=== PATIENT | female | born 1945 | race Caucasian/White ===

== ENCOUNTER 2024-10-24 10:17 | Outpatient (AMB) | payer MEDICARE, SELFPAY ==
--- NOTE | 2024-10-24 10:21 | MHC.OFFVIS ---
Vital Signs 10/24/24 10:23 Height 5 ft 6 in Weight 212 lb BMI 34.2 BP 150/69 H Blood Pressure Location Lt brachial Position Sitting Respiration 18 Pulse 88 Pulse Source Pulse Oximeter Pulse Oximetry (%) 95 Oxygen Delivery Method Room Air Intake Visit Reasons: Back Pain/Nevro Consult Senior Java Developer Required: No Allergies acetaminophen (From Vicodin) Allergy (Unknown, Verified 10/24/24 10:20) Unknown hydrocodone (From Vicodin) Allergy (Unknown, Verified 10/24/24 10:20) Unknown meperidine (From Demerol) Allergy (Unknown, Verified 10/24/24 10:20) Unknown Seasonal Allergies Allergy (Unknown, Verified 10/24/24 10:20) Unknown HPI Comments Details: The patient is a 79-year-old female presenting with chronic lower back pain. The pain is described as a deep aching sensation located in the lower back, which does not radiate to the legs currently but has done so in the past when associated with sciatica. The pain is exacerbated by walking and standing for extended periods, with relief upon sitting. In the past she reports that when she would lean forward while walking this would alleviate her pain, however this no longer helps. Does endorse ambulating with slight forward flexed position. The patient reports that the pain has been persistent for years, with no significant relief from previous interventions such as acupuncture, massage, career resource specialist, or physical therapy. She has undergone an interlaminar injection without relief and is not willing to repeat the procedure due to the pain experienced during the injection. The patient has not seen a neurosurgeon for her back issues. Previous imaging from 2020 indicated bulging discs at L4 and L5 with contact but not compression of the nerves, alongside findings of osteoarthritis, bone spurs, and degenerative changes including Modic changes. There is no evidence of central canal stenosis, but the patient experiences discomfort and fatigue in the legs, which could be related to the degenerative changes. Denies red flag symptoms including new loss of bowel, bladder or saddle anesthesia. She is not looking for medications, hoping to find something that improves her quality of life and allows her to be more mobile and walk longer distances. - Onset: Chronic, persistent for years - Quality: Deep aching pain - Location: Lower back - Radiation: Previously radiated to left leg with sciatica, currently no radiation - Exacerbating factors: Walking, standing for extended periods - Relieving factors: Sitting down - Interference: Limits walking distance and standing duration - Affect: Pain impacts patient's ability to maintain an active lifestyle - Analgesia: Patient prefers non-pharmacological management, previous interlaminar injection was ineffective - Adverse Effects: None reported from current pain management strategies - Activities of Daily Living: Pain limits walking and standing, patient desires to increase activity levels - Aberrant Drug Related Behaviors: None reported [facility] Medical History (Updated 10/24/24 @ 11:20 by Mary Reyes APRN, DISPOSAL PLANT OPERATOR) Hypertension COPD (chronic obstructive pulmonary disease) Sleep apnea Diabetes Review of Systems Const Details: - Musculoskeletal: Reports chronic lower back pain, denies tenderness on palpation - Neurological: Denies numbness, tingling, weakness, or incontinence Physical Exam Vital Signs: Last Vital Signs Pulse 88 10/24/24 10:23 Resp 18 10/24/24 10:23 BP 150/69 H 10/24/24 10:23 Pulse Ox 95 10/24/24 10:23 Oxygen Delivery Method Room Air 10/24/24 10:23 BMI result Body Mass Index 34.2 General: awake, alert, oriented. Answers questions appropriately. Fully engaged in examination. Skin: warm, dry, intact HEENT: Normocephalic. Hearing intact. Cardiac: External chest normal in appearance. Respiratory: No cough, audible wheezing or stridor. Abdomen: without gross distension. MS: No obvious swelling or deformities. Able to stand on bilateral tiptoes and bilateral heels.? Able to transition from sit to stand unassisted. Ambulates with bilaterally normal heel strike and toe off SLR negative bilaterally Full lumbar range of motion. No pain with flexion or extension Nontender over midline lumbar vertebrae and lumbar paraspinal muscles Nontender over bilateral PSIS Valsalva negative Bilateral lower extremity strength 5/5 Facet loading positive bilaterally Neurological: Oriented to person, place, time and situation. Thought process intact. No gait abnormalities appreciated. Psychiatric: Appropriate mood and affect. Good judgment and insight. Results Reviewed Results Reviewed: Assessment & Plan Assessment & Plan (1) Chronic back pain: Code(s): M54.9 - Dorsalgia, unspecified; G89.29 - Other chronic pain Category: Medical (2) Degenerative disc disease, lumbar: Code(s): M51.369 - Other intervertebral disc degeneration, lumbar region without mention of lumbar back pain or lower extremity pain Category: Medical (3) Lumbar spondylosis: Code(s): M47.816 - Spondylosis without myelopathy or radiculopathy, lumbar region Category: Medical (4) Chronic pain syndrome: Code(s): G89.4 - Chronic pain syndrome Category: Medical Plan The plan involves obtaining updated imaging studies, including an MRI and x-rays with bending views, to assess the current status of the patient's lumbar spine and identify any changes since the last imaging in 2020. We reviewed the option of a spinal cord stimulator trial, explaining the procedure, potential benefits, and the requirement for a mental health evaluation. I informed her about the insurance approval process and the possibility of needing to complete additional physical therapy if required by her insurance. We also discussed the logistics of scheduling the MRI and x-rays to minimize inconvenience. The patient was receptive to the plan and expressed understanding of the steps involved. Patient was informed and verbally consented to the use of an ambient scribe for clinic note documentation during this visit. Orders: Orders MR lumbar spine wo con Today G89.29 - Other chronic pain, G89.4 - Chronic pain syndrome, M47.816 - Spondylosis without myelopathy or radiculopathy, lumbar region, M51.369 - Other intervertebral disc degeneration, lumbar region without mention of lumbar back pain or lower extremity pain, M54.9 - Dorsalgia, unspecified XR lumbar spine 6V w bending Today G89.29 - Other chronic pain, G89.4 - Chronic pain syndrome, M47.816 - Spondylosis without myelopathy or radiculopathy, lumbar region, M51.369 - Other intervertebral disc degeneration, lumbar region without mention of lumbar back pain or lower extremity pain, M54.9 - Dorsalgia, unspecified Patient Instructions: - Await contact from the imaging department for scheduling MRI and x-rays. - Review the information provided on the spinal cord stimulator trial. - Be prepared for a potential short course of physical therapy if required by insurance. - Contact the office if there are any questions or concerns about the plan. Coding Level of Care Code New Pt Level 4 (79550) Complex EM visit Add On G2211 Diagnoses Chronic back pain M54.9; G89.29 Degenerative disc disease, lumbar M51.369 Lumbar spondylosis M47.816 Chronic pain syndrome G89.4
[2024-10-24 10:23] VITALS: BP 150/69; PULSE 88; RESP 18; O2SAT 95; BMI 34.2
--- OUTSIDE RECORDS SUMMARY | 2024-10-24 11:23 | XMS_ITS | Clinical Summary ---
Author Organization [facility] Address [address] [place] [address] Care Team Providers Care Roller Stainer Name Role Phone Luba Mills MD Primary Care Provider [phone]- [phone] Allergies Active Allergy Reactions Criticality Noted Date Comments Hydrocodone-Acetaminophen 04/24/2020 Medications Medication Sig Dispensed Refills Start Date End Date Status omeprazole (PriLOSEC) 20 MG capsule Take 20 mg by mouth 2 (two) times a day. 0 03/27/2020 Active lisinopril (PRINIVIL,ZESTRIL) tablet 5 mg Take 5 mg by mouth. 0 03/14/2020 Acti ve atorvastatin (LIPITOR) tablet 10 mg TK 1 T PO D 0 02/21/2020 Active insulin glargine (LANTUS SOLOSTAR) injection 100 units/mL Inject 100 Units as directed every morning AND 110 Units every evening. 0 03/14/2020 Active fluticasone (Flonase) 50 MCG/ACT nasal spray spray or apply 100 mcg inside Nose. 0 05/19/2018 Active Melatonin 10 MG TABS Take by mouth. 0 Active Active Problems No known active problems Family History Medical History Relation Name Comments Cancer Mother Relation Name Status Comments Mother Social History Tobacco Use Types Packs/Day Years Used Date Smoking Tobacco: Former Smokeless Tobacco: Never Alcohol Use Standard Drinks/Week Comments Yes 2 (1 standard drink = 0.6 oz pur e alcohol) Sex and Gender Information Value Date Recorded Sex Assigned at Not on file Gender Identity Not on file Sexual Orientation Not on file Job Start Date Occupation Industry Not on file Not on file Not on file Last Filed Vital Signs Vital Sign Reading Time Taken Comments Blood Pressure - - Pulse 95 04/24/2020 1:32 PM EST Temperature - - Respiratory Rate - - Oxygen Saturation 96% 04/24/2020 1:32 PM EST Inhaled Oxygen Concentration - - Weight 103.9 kg (229 lb) 04/24/2020 1:32 PM EST Height 167.6 cm (5' 6 ) 04/24/2020 1:32 PM EST Body Mass Index 36.96 04/24/2020 1:32 PM EST Plan of Treatment Health Maintenance Due Date Last Done Comments Hepatitis C Screening 1945 COVID-19 Vaccine (#1) 03/16/1946 Depression Screening 1958 BMI Counseling 1964 Preventative Health Evaluation 1964 DTap / Tdap / Td (1 - Tdap) 1965 Shingrix-Zoster Vaccine (1 of 2) 1996 Fall Risk Assessment 09/14/2011 Osteoporosis Screening (DEXA Scan) 09/14/2011 RSV Adult > 60+ Yrs or (1 - 1-dose 75+ series) 2021 Influenza Vaccine (Season Ended) 2024 01/26/2018, 01/28/2017, 01/03/2009, Additional history exists Pneumococcal Vaccine Completed 02/26/2016, 02/17/20 13 Hepatitis B Vaccines Aged Out No long er eligible based on patient's age to complete this topic RSV Ped < 20 months Aged Out No longe r eligible based on patient's age to complete this topic Care Teams Roller Stainer Relationship Specialty Start Date End Date Luba Mills MD [address] [facility] [place] [address] PCP - General Internal Medicine 04/24/20
== END 2024-10-24 10:57 | disposition home or self-care (01) ==
LOC: HO.PMC 10:17
PROVIDERS: PCP Pediatrics; Referring Provider Pediatrics; Visit Provider Registered Nurse Emergency
DX: M54.9 Dorsalgia, unspecified (principal); G89.29 Other chronic pain; M51.369 Other intervertebral disc degeneration, lumbar region without mention of lumbar back pain or lower extremity pain; M47.816 Spondylosis without myelopathy or radiculopathy, lumbar region; G89.4 Chronic pain syndrome
CPT/HCPCS: 99204; G2211

== ENCOUNTER → 2024-10-24 10:17 | Outpatient (BNVA) | payer MEDICARE, SELFPAY | PROVIDERS: PCP Pediatrics; Referring Provider Pediatrics; Visit Provider Registered Nurse Emergency | DX: G89.4 Chronic pain syndrome (principal); M54.9 Dorsalgia, unspecified; M47.816 Spondylosis without myelopathy or radiculopathy, lumbar region; M51.369 Other intervertebral disc degeneration, lumbar region without mention of lumbar back pain or lower extremity pain | CPT/HCPCS: 99202 ==

== ENCOUNTER 2024-11-07 15:48 | Outpatient (REF) | payer MEDICARE, SELFPAY ==
--- NOTE | ~2024-11-07 | XR_ITS ---
EXAMINATION: XR LUMBOSACRAL SPINE CLINICAL INFORMATION: M54.9 - Dorsalgia, unspecified COMPARISON: None available. TECHNIQUE: 7 views of the lumbar spine, inclusive of flexion and extension views, were obtained. FINDINGS: Moderate desiccation is present in the abdominal aorta. There are 5 nonrib-bearing lumbar segments. There is mild convex left curvature of the lumbar spine. With flexion and extension, there is no sign of instability. Oblique views demonstrate no pars interarticularis defect. L1-2: There is moderate disc space narrowing and grade 1 retrolisthesis with endplate osteophytes. L2-3: There is moderate disc space during with endplate osteophytes. L3-4: There is severe disc space narrowing with subtle anterolisthesis and endplate osteophytes. L4-5: There is moderate to severe disc space narrowing with vacuum phenomena and endplate osteophytes. There is facet sclerosis and osteophytes. L5-S1: There is mild disc space narrowing and facet sclerosis. XR/XR lumbar spine 6V w bending IMPRESSION: Multilevel degenerative disc disease is most advanced at L3-4 and L4-5.. Electronically signed by: Сергей Hylton MD 11/07/2024 04:41 PM EDT
--- NOTE | ~2024-11-07 | MR_ITS ---
EXAMINATION: MR LUMBAR SPINE WITHOUT CONTRAST CLINICAL INFORMATION: Other intervertebral disc degeneration, lumbar region. COMPARISON: Correlated to x-ray dated November 07, 2024. TECHNIQUE: MRI of the lumbar spine was obtained using routine sequences without contrast. FINDINGS: Last rib-bearing vertebra labeled T12. No bone marrow STIR signal abnormality. Multilevel marginal osteophyte formation and disc desiccation decreased intervertebral disc height and signal from T10-11 to L5-S1 pronounced at L2-3 and L4-5 levels. Modic type II endplate changes at L3-4 and L4-5 levels. Conus medullaris ends at pedicle of L1 with normal signal. Bone marrow inhomogeneity throughout the axial skeleton. T11-12: No disc herniation. No neuroforamina stenosis. T12-L1: No disc herniation. No neuroforamina stenosis. L1-2: Broad-based disc bulging. Facet joint hypertrophy. Reduced AP diameter of the thecal sac and neuroforamina likely encroaching the neural elements. L2-3: Broad-based disc bulging. Posterior marginal osteophyte formation. Facet joint hypertrophy. Central spinal canal and bilateral neuroforamina stenosis encroaching the neural elements. L3-4: Broad-based disc bulging. Posterior marginal osteophyte formation. Facet joint hypertrophy. Central spinal canal and bilateral neuroforamina stenosis encroaching the neural elements. L4-5: Left-subarticular and foraminal herniated disc.. Posterior marginal osteophyte formation. Central spinal canal and bilateral neuroforamina stenosis compressing the left L5 and L4 roots. L5-S1: Broad-based disc bulging. Facet joint hypertrophy. Circumferential prominence of the epidural fat resulting in central spinal canal and bilateral neuroforamina stenosis encroaching likely compressing the neural elements of the thecal sac and the exiting nerve roots more pronounced on the left side. No prevertebral compartment hematoma, mass or fluid collection. There is fatty atrophy of the lower lumbar muscles. Hyperintense T2 cystic lesions in the kidneys. There is soft tissue fullness in the left adrenal gland. MR/MR lumbar spine wo con IMPRESSION: Multilevel lumbar spondylosis L1-2 to L5-S1 resulting in central spinal canal and bilateral neural stenosis encroaching likely compressing the neural elements pronounced at L3-4, L4-5 and L5-S1 and L2-3 levels. Left subarticular and foraminal broad-based disc herniation L4-5 compressing the exiting nerve roots L4 and L5 Epidural lipomatosis L5-S1. Electronically signed by: Attila Hirsch MD 11/08/2024 07:25 AM EDT
--- OUTSIDE RECORDS SUMMARY | 2024-11-07 16:39 | XMS_ITS | Clinical Summary ---
Author Organization [facility] Address [address] [place] [address] Care Team Providers Care Machinist Linotype Name Role Phone Luba Mills MD Primary Care Provider +1- [phone] Allergies Active Allergy Reactions Criticality Noted Date [...] - 1-dose 75+ series) 2021 Influenza Vaccine (#1) 2024 8, 01/28/2017, 01/03/2009, Additional history exists Pneumococcal Vaccine Completed 02/26/2016, 02/17/20 13 Hepatitis B Vaccines Aged Out No long er eligible based on patient's age to complete this topic RSV Ped < 20 months Aged Out No longe r eligible based on patient's age to complete this topic Care Teams Machinist Linotype Relationship Specialty Start Date End Date Luba Mills MD 1 [facility] [place] [id number] PCP - General Internal Medicine 04/24/20
== END 2024-11-07 15:49 | disposition home or self-care (01) ==
LOC: HO.MRI 15:48
PROVIDERS: PCP Pediatrics; Visit Provider Registered Nurse Emergency
DX: M54.9 Dorsalgia, unspecified (principal); G89.29 Other chronic pain; M51.369 Other intervertebral disc degeneration, lumbar region without mention of lumbar back pain or lower extremity pain; M47.816 Spondylosis without myelopathy or radiculopathy, lumbar region
CPT/HCPCS: 72114; 72148

== ENCOUNTER → 2024-11-07 15:55 | Outpatient (BNV) | payer MEDICARE, SELFPAY | PROVIDERS: PCP Pediatrics; Visit Provider Radiology Diagnostic Radiology | DX: M51.360 Other intervertebral disc degeneration, lumbar region with discogenic back pain only (principal) | CPT/HCPCS: 72114; 72148 ==

== ENCOUNTER 2024-11-17 09:15 | Outpatient (AMB) | payer MEDICARE, SELFPAY ==
[2024-11-17 09:27] VITALS: BP 117/59; PULSE 99; RESP 18; O2SAT 99; BMI 33.9
--- NOTE | 2024-11-17 09:27 | A.OFFVIS_ITS ---
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 The condition has worsened over the years, as evidenced by recent MRI findings showing increased stenosis and disc degeneration. The patient experiences pain primarily in the middle of the back, exacerbated by walking and standing, and relieved by sitting. Recent MRI and x-rays were reviewed, results as per below. The patient has previously undergone a steroid injection for pain management, which was ineffective and caused significant discomfort. She reports no leg weakness or neurological deficits, which would otherwise necessitate a neurosurgical consultation. - Onset: Chronic, worsening over years - Quality: Pain in the middle of the back - Exacerbating factors: Walking and standing - Relieving factors: Sitting - Affect: Pain restricts life activities and enjoyment - Analgesia: Previous injection was ineffective - Adverse Effects: None reported from current pain management - Activities of Daily Living: Pain limits walking and standing - Aberrant Drug Related Behaviors: None reported [facility] Medical History (Updated 11/17/24 @ 10:08 by Mary Reyes, GROUND SUPPORT EQUIPMENT FITTER, CLAMP REMOVER) Hypertension COPD (chronic obstructive pulmonary disease) Sleep apnea Diabetes Review of Systems Const Details: - Neurological: Denies leg weakness or neurological deficits Physical Exam Exam Exam: General: awake, alert, oriented. Answers questions appropriately. Fully engaged in examination. Skin: warm, dry, intact HEENT: Normocephalic. Hearing intact. Cardiac: External chest normal in appearance. Respiratory: No cough, audible wheezing or stridor. Abdomen: without gross distension. MS: No obvious swelling or deformities. Able to transition from sit to stand unassisted. Ambulates with bilaterally normal heel strike and toe off SLR negative bilaterally Valsalva negative Bilateral lower extremity strength 5/5 Neurological: Oriented to person, place, time and situation. Thought process intact. No gait abnormalities appreciated. Psychiatric: Appropriate mood and affect. Good judgment and insight. Vital Signs: Last Vital Signs Pulse 99 11/17/24 09:27 Resp 18 11/17/24 09:27 BP 117/59 L 11/17/24 09:27 Pulse Ox 99 11/17/24 09:27 BMI result Body Mass Index 33.9 Results Reviewed Results Reviewed: 11/07/24 MR/MR lumbar spine wo con FINDINGS: Last rib-bearing vertebra labeled T12. No bone marrow STIR signal abnormality. Multilevel marginal osteophyte formation and disc desiccation decreased intervertebral disc height and signal from T10-11 to L5-S1 pronounced at L2-3 and L4-5 levels. Modic type II endplate changes at L3-4 and L4-5 levels. Conus medullaris ends at pedicle of L1 with normal signal. Bone marrow inhomogeneity throughout the axial skeleton. T11-12: No disc herniation. No neuroforamina stenosis. T12-L1: No disc herniation. No neuroforamina stenosis. L1-2: Broad-based disc bulging. Facet joint hypertrophy. Reduced AP diameter of the thecal sac and neuroforamina likely encroaching the neural elements. L2-3: Broad-based disc bulging. Posterior marginal osteophyte formation. Facet joint hypertrophy. Central spinal canal and bilateral neuroforamina stenosis encroaching the neural elements. L3-4: Broad-based disc bulging. Posterior marginal osteophyte formation. Facet joint hypertrophy. Central spinal canal and bilateral neuroforamina stenosis encroaching the neural elements. L4-5: Left-subarticular and foraminal herniated disc.. Posterior marginal osteophyte formation. Central spinal canal and bilateral neuroforamina stenosis compressing the left L5 and L4 roots. L5-S1: Broad-based disc bulging. Facet joint hypertrophy. Circumferential prominence of the epidural fat resulting in central spinal canal and bilateral neuroforamina stenosis encroaching likely compressing the neural elements of the thecal sac and the exiting nerve roots more pronounced on the left side. No prevertebral compartment hematoma, mass or fluid collection. There is fatty atrophy of the lower lumbar muscles. Hyperintense T2 cystic lesions in the kidneys. There is soft tissue fullness in the left adrenal gland. IMPRESSION: Multilevel lumbar spondylosis L1-2 to L5-S1 resulting in central spinal canal and bilateral neural stenosis encroaching likely compressing the neural elements pronounced at L3-4, L4-5 and L5-S1 and L2-3 levels. Left subarticular and foraminal broad-based disc herniation L4-5 compressing the exiting nerve roots L4 and L5 Epidural lipomatosis L5-S1. 11/07/24 XR/XR lumbar spine 6V w bending FINDINGS: Moderate desiccation is present in the abdominal aorta. There are 5 nonrib-bearing lumbar segments. There is mild convex left curvature of the lumbar spine. With flexion and extension, there is no sign of instability. Oblique views demonstrate no pars interarticularis defect. L1-2: There is moderate disc space narrowing and grade 1 retrolisthesis with endplate osteophytes. L2-3: There is moderate disc space during with endplate osteophytes. L3-4: There is severe disc space narrowing with subtle anterolisthesis and endplate osteophytes. L4-5: There is moderate to severe disc space narrowing with vacuum phenomena and endplate osteophytes. There is facet sclerosis and osteophytes. L5-S1: There is mild disc space narrowing and facet sclerosis. IMPRESSION: Multilevel degenerative disc disease is most advanced at L3-4 and L4-5.. Assessment & Plan Assessment & Plan (1) Chronic back pain: Code(s): M54.9 - Dorsalgia, unspecified; G89.29 - Other chronic pain Category: Medical (2) Degenerative disc disease, lumbar: Code(s): M51.369 - Other intervertebral disc degeneration, lumbar region without mention of lumbar back pain or lower extremity pain Category: Medical (3) Lumbar spondylosis: Code(s): M47.816 - Spondylosis without myelopathy or radiculopathy, lumbar region Category: Medical (4) Chronic pain syndrome: Code(s): G89.4 - Chronic pain syndrome Category: Medical (5) Spinal stenosis: Code(s): M48.00 - Spinal stenosis, site unspecified Category: Medical Plan I discussed with the patient the findings of her MRI, which indicate worsening spinal stenosis and degenerative disc disease. The plan involves considering a spinal cord stimulator trial to manage the patient's chronic back pain. The patient has been informed about the procedure, including the risks of infection, bleeding, and nerve damage. A mental health clearance is required before proceeding with the trial, and the patient was given [employer] point handout with contact information so she can get this completed. If this is not covered by her insurance she should discuss with the insurance company a covered provider that can perform this clearance for her. She was advised that we will submit prior Auth for spinal cord stimulator trial once mental health evaluation is cleared per insurance regulations. The trial will involve a temporary implant for one week, and if successful, a permanent implant may be considered. Patient was informed and verbally consented to the use of an ambient scribe for clinic note documentation during this visit. Patient Instructions: - Contact your insurance company to verify coverage for the mental health evaluation - Obtain mental health clearance for the procedure. - Avoid massages during the trial period. - Follow up after the trial for further evaluation. Coding Level of Care Code Est Pt Level 3 (57792) Complex EM visit Add On G2211 Diagnoses Chronic back pain M54.9; G89.29 Degenerative disc disease, lumbar M51.369 Lumbar spondylosis M47.816 Chronic pain syndrome G89.4 Spinal stenosis M48.00
--- OUTSIDE RECORDS SUMMARY | 2024-11-17 09:31 | XMS_ITS | Clinical Summary ---
Author Organization [facility] Address [address] [place] [phone] Phone Care Team Providers Care Mammalogist Name Role Phone Luba Munoz MD Primary Care Provid er Allergies Active Allergy Reactions Criticality Noted Date Comments Meperidine (Pf) Nausea and/or Vomiting 12/26/19 21 Hydrocodone-Acetaminophen Nausea and/or Vomiting 12/25/2020 Medications atorvastatin (LIPITOR) 10 MG tablet Active omeprazole (PRILOSEC) 20 MG capsule Take 20 mg by mouth 2 (two) times a day. 1 Active LANTUS SOLOSTAR U-100 INSULIN 100 unit/mL (3 mL) InPn injection pen INJECT 100 UNITS UNDER THE SKIN EVERY MORNING AND 110 UNITS EVERY EVENING DIRECTED 1 Active insulin glargine (LANTUS SOLOSTAR U-100 INSULIN) 100 unit/mL (3 mL) InPn injection pen Active dulaglutide (TRULICITY) 0.75 mg/0.5 mL subcutaneous injection 1 Active TRULICITY 0.75 mg/0.5 mL subcutaneous injection ADMINISTER 0.75 MG UNDER THE SKIN 1 TIME A WEEK 1 Active lisinopril (PRINIVIL,ZESTRI L) 5 MG tablet Take 5 mg by mouth daily. 1 Active fluticasone propionate (FLONASE) 50 mcg/actuation nasal spray 2 sprays by Nasal route daily. 1 Active melatonin 5 mg Tab Take 10 mg by mouth nightly at bedtime. Active albuterol 2.5 mg/0.5 mL nebulizer solution Take 2.5 mg by nebulization. Active fluticasone propion-salmeter oL (ADVAIR HFA) 230-21 mcg/actuation inhaler Inhale 460 mcg/treatment of fluticasone into the lungs 2 (two) times a day. Active Family History Medical History Relation Comments Ovarian cancer Mother Relation Status Comments Mother Social History Tobacco Use Types Packs/Day Years Used Date Smoking Tobacco: Never Smokeless Tobacco: Never Education Answer Date Recorded Are you interested in more education? Not on vandana e 08/22/2022 Are you concerned about learning? Not on file 08/22/2022 No 08/22/2022 No 08/22/2022 Digital Access Answer Date Recorded No 09/20/2022 No 09/20/2022 No 09/20/2022 Reliable internet access at home? Not on file 09/20/2022 Device with a working camera? Not on file Comments Unknown Sex and Gender Information Value Date Recorded Sex Assigned at Female 12/05/2020 3:49 PM EDT Legal Sex Female 3:47 PM EDT Gender Identity Female 12/05/2020 3:49 PM EDT Sexual Orientation Straight 12/05/2020 3: 49 PM EDT Last Filed Vital Signs Vital Sign Reading Time Taken Comments Blood Pressure 137/70 12/25/2020 12:10 PM EDT Pulse 91 12/25/2020 12:10 PM EDT Temperature 36.2 C (97.1 F) 12/25/2020 12:10 PM EDT Respiratory Rate 16 12/25/2020 12:1 0 PM EDT Oxygen Saturation 96% 12/25/2020 12: 10 PM EDT Inhaled Oxygen Concentration - - Weight 102.6 kg (226 lb 4.8 oz) 021 12:10 PM EDT Height - - Body Mass Index - - Plan of Treatment Health Maintenance Due Date Last Done Comments CREATININE LEVEL 1946 LIPID PANEL 1946 POTASSIUM LEVEL 1945 HEPATITIS C SCREENING 1964 ZOSTER VACCINES (1 of 2) 1996 OSTEOPOROSIS SCREENING INITI AL (ONE-TIME) 09/14/2011 RSV VACCINE (1 - 1-dose 75+ series) 2021 DEPRESSION SCREENING 12/22/2021 12/22/2020 COVID-19 VACCINE (3 - 2023-2 5 season) 2023 08/08/2020, 07/11/2020 Adult Td,Tdap Booster 03/19/2024 03/19/2014 , 01/25/2004 PNEUMOCOCCAL VACCINES (50+ years) Completed 08/30/2020, 02/26/2016, 02/16/2013 SMOKING STATUS SCREENING (On ce After 26 Yrs) Completed 12/25/2020 HEPATITIS A VACCINES Aged Out No long er eligible based on patient's age to complete this topic HIB VACCINES Aged Out No longer eligi ble based on patient's age to complete this topic MENINGOCOCCAL VACCINES (ACWY) Aged Out No longer eligible based on patient's age to complete this topic MENINGOCOCCAL VACCINES (B) Aged Out N o longer eligible based on patient's age to complete this topic Medical Devices Not on file Insurance [address] [id number] MEDICARE REPLACEMENT MEDICARE PART A & B [facility] MEDICARE REPLACEMENT MEDICARE PART A & [place] [address] [place] [address] MEDICARE REPLACEMENT MEDICARE PART A & [place] [address] [place] [id number] MEDICARE REPLACEMENT MEDICARE PART A & B [facility] MEDICARE REPLACEMENT Member Subscriber Plan / Payer (Ef fective 2020-Present) Name:Loraine Dorina Relation to Subscriber:Self Name:Dorina Baron Payer ID:[id number] (NAIC) Type:Medicare Address: [place] [phone] MEDICARE PART A & B MEDICARE REPLACEMENT MEDICARE PART A & B MEDICARE REPLACEMENT MEDICARE PART A & B MEDICARE REPLACEMENT MEDICARE PART A & B MEDICARE REPLACEMENT MEDICARE PART A & B Care Teams Mammalogist Relationship Specialty Start Date End Date [facility] [address] [id number] PCP - General Internal Medicine 12/05/20 Additional Source Comments The information contained in this document represents components of the legal health record. It is not the complete legal health record.[facility]
--- OUTSIDE RECORDS SUMMARY | 2024-11-17 09:31 | XMS_ITS | Clinical Summary ---
Author Organization [facility] Address [address] [place] [address] Care Team Providers Care Porcelain Finish Sprayer Name Role Phone Luba Mills MD Primary Care Provider [phone] Allergies Active Allergy Reactions Criticality Noted Date [...] age to complete this topic Care Teams Porcelain Finish Sprayer Relationship Specialty Start Date End Date Luba Mills MD [address] [facility] [place] [id number] PCP - General Internal Medicine 04/24/20
== END 2024-11-17 09:50 | disposition home or self-care (01) ==
LOC: HO.PMC 09:16
PROVIDERS: PCP Pediatrics; Visit Provider Registered Nurse Emergency
DX: M54.9 Dorsalgia, unspecified (principal); G89.29 Other chronic pain; M51.369 Other intervertebral disc degeneration, lumbar region without mention of lumbar back pain or lower extremity pain; M47.816 Spondylosis without myelopathy or radiculopathy, lumbar region; G89.4 Chronic pain syndrome; M48.00 Spinal stenosis, site unspecified
CPT/HCPCS: 99213; G2211

== ENCOUNTER → 2024-11-17 09:15 | Outpatient (BNVA) | payer MEDICARE, SELFPAY | PROVIDERS: PCP Pediatrics; Visit Provider Registered Nurse Emergency | DX: M51.369 Other intervertebral disc degeneration, lumbar region without mention of lumbar back pain or lower extremity pain (principal); M47.816 Spondylosis without myelopathy or radiculopathy, lumbar region; M48.00 Spinal stenosis, site unspecified; M54.9 Dorsalgia, unspecified; G89.29 Other chronic pain | CPT/HCPCS: 99212 ==

== ENCOUNTER 2025-03-30 11:08 | Day surgery (SDC) | payer MEDICARE, SELFPAY ==
[2025-03-14 13:47] VITALS: BMI 33.9
[2025-03-30] VITALS (9 sets, daily range): BP systolic 106–123; BP diastolic 44–55; PULSE 71–88; RESP 12–18; TEMP 36.2–37.2; O2SAT 95–100; BMI 34.5
--- NOTE | ~2025-03-30 | FL_ITS ---
EXAMINATION: FLUOROSCOPY GUIDANCE FOR NEEDLE PLACEMENT CLINICAL INFORMATION: spinal cord trial COMPARISON: Lumbar spine x-ray and MRI October 2024 TECHNIQUE: Fluoroscopy guidance for pain management procedure. FINDINGS: 6 submitted fluoroscopic images demonstrate new stimulator leads projecting over the mid and lower thoracic spinal canal. See procedure note for details findings. FLUOROSCOPY TIME: 2 minutes 25 seconds Dose:: 17.7 Gy-cm2 FL/FL guidance in OR IMPRESSION: Fluoroscopy guidance for pain management procedure. Electronically signed by: Berna Matute MD 03/30/2025 03:28 PM MEME
--- NOTE | 2025-03-30 11:39 | MHC.SHP ---
Pre-Procedural Eval Section A - 24 Hr Update-Section A only Date of Service: 03/30/25 The patient is an INPATIENT: No Changes since office visit: Yes Patient answered all questions The patient has been examined within 24 hours of the surgical procedure. The History & Physical has been completed within 30 days and I have reviewed it.: No Section B - Complete if H&P > 30 days Chief Complaint: Chronic pain syndrome,chronic pain Details of Present Illness: As above Relevant Family History (Specify if Yes): No Relevant Social History: None Present Medications: see Short Stay Collaborative assessment Medical History: Significant History (Obesity) History of Previous Operations: No relevant previous surgery Allergies: Allergies Allergy/AdvReac Type Severity Reaction Status Date / Time acetaminophen (From Vicodin) Allergy Unknown Unknown Verified 11/17/24 09:27 hydrocodone (From Vicodin) Allergy Unknown Unknown Verified 11/17/24 09:27 meperidine (From Demerol) Allergy Unknown Unknown Verified 11/17/24 09:27 Seasonal Allergies Allergy Unknown Unknown Verified 11/17/24 09:27 Review of Systems Sugical H&P ROS: Negative: Cardiovascular, Respiratory, Neurological, Psychiatric, Hem-Onc, Allergic/Immunologic, Gastrointestinal, Genitourinary, Integumentary, Endocrine and Eyes/Ears/Nose/Throat and Yes, Specify: Constitution (Obesity) and Musculoskeletal (Disc degeneration, spinal stenosis, chronic pain syndrome) Exam Surgical H&P Exam: Normal: HEENT, Normal: Heart, Normal: Lungs, Normal: Extremities, Normal: Abdomen, Normal: Skin and Normal: Neurological Plan Diagnosis/Plan: Unchanged I have reviewed the history and physical and performed a pertinent physical examination on my patient. No changes have occurred unless specified. Time Spent With Patient Time: Total time managing care of this patient today ____ minutes.
[2025-03-30 11:41] LABS: Glucose, Whole Blood 151 mg/dL (60-115)
[2025-03-30] MEDS: Lactated Ringers 1,000 ML 80 ML IVCONT (11:45)
--- NOTE | 2025-03-30 11:48 | HO.ANESPROP2 ---
[facility] Active Problems Active Problems: All Active Problems Spinal stenosis (Acute) Lumbar spondylosis (Acute) Chronic pain syndrome (Acute) Chronic back pain (Acute) Degenerative disc disease, lumbar (Acute) Past Medical History Medical History (Updated 03/14/25 @ 13:56 by Kaylyn Valentino RN) Asthma GERD (gastroesophageal reflux disease) Back pain Spinal stenosis DDD (degenerative disc disease), lumbar Hypertension COPD (chronic obstructive pulmonary disease) Sleep apnea Diabetes Family History Family history of problems with anesthesia: No Surgical History Surgical History (Updated 03/30/25 @ 11:40 by Megan Keating RN) H/O colonoscopy with polypectomy History of Problems with Anesthesia: No Social History Social History Patient Tobacco Use Status: Former Tobacco user Tobacco use type: Cigarette Use of substances other than those prescribed or required for medical reasons: No Are you DNR?: No Advance Directives: No Advance Directives Information Provided: Yes Patient : No : No Meds Allergies Allergy/AdvReac Type Severity Reaction Status Date / Time hydrocodone (From Vicodin) Allergy Severe Vomiting Verified 03/30/25 11:39 meperidine (From Demerol) Allergy Severe Vomiting Verified 03/30/25 11:39 Seasonal Allergies Allergy Unknown Unknown Verified 11/17/24 09:27 Active Medications: Current Medications Fentanyl (Fentanyl Citrate/Pf 100 Mcg/2 Ml Vial) 50 mcg IVPUSH Q5M PRN PRN Reason: Pain, Moderate to Severe (Pain Scale 4-10) Stop: 03/30/25 17:44 Haloperidol Lactate (Haloperidol Lactate 5 Mg/Ml Vial) 1 mg IVPUSH ONCE PRN PRN Reason: intractable nausea Stop: 03/30/25 17:44 Lactated Ringer's (Lr) 1,000 mls @ 80 mls/hr IVCONT .[id number] KEVIN Last Admin: 03/30/25 11:45 Dose: 80 mls/hr Naloxone HCl (Naloxone Hcl 0.4 Mg/Ml Vial) 0.04 mg IVPUSH Q5M PRN PRN Reason: Excessive sedation or RR < 8 Oxycodone HCl (Oxycodone Hcl Immed Release 5 Mg Tablet) 5 mg PO ONCE PRE DISCHARGE PRN PRN Reason: Pre Discharge if no IV Access Stop: 03/30/25 17:44 Home Medications ?Medication ?Instructions ?Recorded ?Confirmed ?Last Taken ?Type amitriptyline 10 mg tablet 20 mg PO BEDTIME 10/23/24 03/14/25 Unknown History atorvastatin 10 mg tablet (Lipitor) 10 mg PO DAILY 10/23/24 03/14/25 Unknown History insulin glargine 100 unit/mL (3 60 unit subcut QPM 10/23/24 03/14/25 Unknown History mL) subcutaneous pen (Lantus Solostar U-100 Insulin) lisinopril 5 mg tablet 5 mg PO DAILY 10/23/24 03/14/25 Unknown History omeprazole 40 mg capsule,delayed 40 mg PO DAILY 10/23/24 03/14/25 Unknown History release semaglutide 2 mg/dose (8 mg/3 mL) 2 mg subcut QWEEK 10/23/24 03/14/25 03/20/25 History subcutaneous pen injector (Ozempic) Exam Height,Weight and Vital Signs: Height 5 ft 6 in Weight 97 kg Last Vital Signs Temp 98.9 F 03/30/25 11:36 Pulse 88 03/30/25 11:36 Resp 17 03/30/25 11:36 BP 123/50 L 03/30/25 11:36 Pulse Ox 98 03/30/25 11:36 O2 Del Method Room Air 03/30/25 11:36 Pertinent Lab Results Pertinent Lab Results: Laboratory Tests 03/30/25 11:37 POC Glucose 151 H Airway Mallampati Class: III (multiple caps/crowns through out) TM Dist: >3cm Neck ROM: Full Heart: rrr Lungs: cta Assessment and Plan Assessment Anesthesia Assessment: Anesthesia Plan Discussed and Chart Reviewed Final Anesthetic Review Family History of Problems with Anesthesia: No History of Problems with Anesthesia: No NPO: Yes ASA Class: III Final Preanesthetic Review: No Changes in Pt Med Stat, Meds/Allgs Chart Reviewed and Consent Obtained/Reviewed Patient Risk: Intermediate Procedure Risk: Intermediate Anesthetic Plan Anesthetic Plan: GA Disposition: Standard PACU
--- NOTE | 2025-03-30 13:08 | W.PM.OPN ---
Operative Note Operative Note Date of Service: 03/30/25 Narrative: Trial of spinal cord stimulator Nevro. Cam is very pleasant 79 years old female who came today into the operating room for the trial of spinal cord stimulator for the treatment of chronic pain syndrome and spinal stenosis. Preoperatively patient received ?cefazolin 2. g approximately 30 minutes before the procedure. After obtaining informed consent the patient was brought to the operating room, she was positioned supine on the operating table ASA monitors were applied and patient was induced with general endotracheal anesthesia. After that patient was repositioned prone on the operating table , all pressure points were protected. ?Time-out was performed delineating correct site, side, the nature of the procedure, patient's allergy, preoperative antibiotic if needed.? All operating room staff was participating in OR time-out procedure. 2 g of cefazolin was administered approximately 15 minutes before onset of the procedure. Patient's entire back was prepped with ChloraPrep twice and draped with full body fenestrated drape .? Sterilely draped C-arm was brought over operating field and square picture of? T12-L1 and L2 vertebrae as were demonstrated on the screen.? The skin was? infiltrated with the mixture of lidocaine 2% and ropivacaine 0.5% in the projection of the right pedicle of L2 to vertebra. After that? number 11 Blade scalpel was used to perform small balbir in the skin. t the attention? was concentrated on the T12-L1 epidural interspace.? The location of the projection of the right pedicle center of the? L2 vertebra was found on the skin using C-arm.? This location was injected with mixture of lidocaine 2% and Marcaine 0.5% 5 cc.? ? 10 cm 14 gauge? introducer epidural needle was inserted through the skin and advanced to? T12-L1 epidural interspace.? The advancement of the needle was performed on anterior posterior and lateral views.? Unfortunately at this level neither straight epidural needle nor coude epidural needle was effective to advanced further than interlaminar line. This sensation under the needle was felt like the bone, calcification of the interlaminar space was suspected. The attention was concentrated after that on L1-L2 interlaminar line. The skin was infiltrated with a mixture of lidocaine 2% and ropivacaine 0.5% in the projection of the right pedicle of L3 vertebra. After that 11 blade scalpel was used to perform small balbir on the skin.. 10 cm 14 gauge coude needle was inserted through the skin wheal and it was advanced to L1-L2 epidural space. Loss of resistance technique was used to advance the Coude needle to the epidural space. When loss of resistance was felt guitar wire was inserted into the needle and it was spread in the epidural fashion. On the lateral view the needle was in the posterior epidural space. After that stimulating electrode was inserted into the needle and advanced in the posterior epidural space to top of the T8 vertebra projection. After that location of the projection of the LEFT pedicle center of the L3 vertebra was found using C-arm.? This location was injected with mixture of lidocaine 2% and Marcaine 0.5% 5 cc.?10 cm 14 gauge? introducer coude needle was inserted through the skin and advanced to L1-L2 epidural interspace.? The advancement of the needle was performed on anterior posterior and lateral views.? Guitar wire and loss of resistance technique were used to locate epidural space.? ? Loss of resistance to air technique and guitar wire were used to locate epidural space. After that the? epidural lead was advanced? slightly left to the midline? to the top of the?T9 vertebra in the posterior epidural space slightly left to the existing electrode.? ?Lateral view demonstrated appropriate position of the electrodes in the posterior epidural space.After satisfactory position of the leads were established the needles were withdrawn, the stylette wires were removed from the epidural leads.? The anchoring devices were dislodged on the leads and advanced to the level of the skin. ?After that the anchoring devices were sutured to the skin using Tycron 1-0 sutures - 2 sutures per each anchoroing device?. The fixation scews were locked until 3 clicks heard. Position of the electrodes was verified again. After that bacitracin ointment was applied to the tips of the anchoring devices at the places where electrodes were entering through the skin sterile dressing was applied with Tegaderm. The stimulating device was connected to epidural leads and it was taped to the skin as well. At this moment the patient was awakened , transferred supine on the stretcher, extubated and transferred stable to PACU for recovery.
--- NOTE | 2025-03-30 13:13 | PM.OP ---
Brief Operative Note Date of Service: 03/30/25 Pre-op diagnosis: Chronic pain syndrome Post-op diagnosis: other (Spinal stenosis chronic pain syndrome) Procedure: Trial of spinal cord stimulator Nevro Implants: None permanent Surgeon: Michel Pierce MD Anesthesia: GETA Was an Patient Registration Manager used for this Procedure?: No Estimated blood loss (mL): 0 Pathology: none sent Condition: stable Disposition: PACU
[2025-03-30 13:25] LABS: MRSA Nasal PCR NEGATIVE (Negative); SA Nasal PCR POSITIVE (Negative)
== END 2025-03-30 15:02 | disposition home or self-care (01) ==
PROVIDERS: Registered Nurse Emergency; PCP Pediatrics; Visit Provider Anesthesiology
PROC: (CPT 63650; principal; 2025-03-30 13:10)
DX: M48.00 Spinal stenosis, site unspecified (principal); G89.4 Chronic pain syndrome; M51.360 Other intervertebral disc degeneration, lumbar region with discogenic back pain only; M47.816 Spondylosis without myelopathy or radiculopathy, lumbar region; I10 Essential (primary) hypertension; J44.9 Chronic obstructive pulmonary disease, unspecified; E11.9 Type 2 diabetes mellitus without complications; G47.33 Obstructive sleep apnea (adult) (pediatric); Z79.4 Long term (current) use of insulin; Z79.85 Long-term (current) use of injectable non-insulin antidiabetic drugs; Z79.899 Other long term (current) drug therapy; Z88.5 Allergy status to narcotic agent; Z87.891 Personal history of nicotine dependence
CPT/HCPCS: 63650 ×2; 82947; 87640; 87641; C1889; C1897; J0131; J0690; J2003; J2250; J2405; J2704; J2795; J3010

== ENCOUNTER → 2025-03-30 11:08 | Outpatient (BNV) | payer MEDICARE, SELFPAY | PROVIDERS: PCP Pediatrics; Visit Provider Anesthesiology | DX: G89.4 Chronic pain syndrome (principal); M48.061 Spinal stenosis, lumbar region without neurogenic claudication | CPT/HCPCS: 63650 ==

== ENCOUNTER 2025-04-06 13:01 | Outpatient (AMB) | payer MEDICARE, SELFPAY ==
--- OUTSIDE RECORDS SUMMARY | 2025-04-04 23:59 | XMS_ITS | Continuity of Care Document ---
Author Organization [facility] Ángela sunny Address [address] [place] [address] [address] [place] [address]- Care Team Providers Care Senior Scrum Master Name Role Phone Luba Munoz MD Primary Care Physician Encounter [facility] Date(s): 02/21/25 - 04/04/25 [facility] [address] [place] [address]- Attending Physician: Not on Staff, Attending MD Referring Physician: Luba Munoz MD Encounter Type: Pre Office Visit Allergies, Adverse Reactions, Alerts Substance Criticality Severity Reaction Reaction Severity Status Vicodin Active Demerol Active Immunizations Given and Recorded Vaccine Date Status Refusal Reason influenza virus vaccine, inactivated 01/11/25 Robb rded influenza virus vaccine, inactivated 12/21/23 Robb rded influenza virus vaccine, inactivated 01/16/23 Robb rded influenza virus vaccine, inactivated 12/31/21 Robb rded influenza virus vaccine, inactivated 12/26/20 Robb rded influenza virus vaccine, inactivated 01/26/18 Robb rded influenza virus vaccine, inactivated 01/28/17 Robb rded influenza virus vaccine, inactivated 01/29/10 Robb rded influenza virus vaccine, inactivated 01/03/09 Robb rded influenza virus vaccine, inactivated 01/23/08 Robb rded influenza virus vaccine, inactivated 01/21/07 Robb rded tetanus/diphtheria/pertussis, acel(Tdap) 01/11/25 Recorded SARS-CoV-2(COVID-19)mRNA-LNP vac([id number]) 01/11/25 Recorded RSV vaccine preF3, recombinant 01/21/24 Recorded RSV vaccine preF3, recombinant 02/13/23 Recorded SARS-CoV-2(COVID-19)mRNA-LNP vac([id number]) 01/21/24 Recorded SARS-CoV-2(COVID-19)mRNA-LNP vac([id number]) 07/20/23 Recorded SARS-CoV-2(COVID-19)mRNA-LNP vac([id number]) 01/16/23 Recorded zoster vaccine, inactivated 10/16/22 Recorded zoster vaccine, inactivated 09/03/21 Recorded SARS-CoV-2 (COVID-19) mRNA-1273 vaccine 06/26/22 G iven SARS-CoV-2 (COVID-19) mRNA-1273 vaccine 12/24/21 R ecorded SARS-CoV-2 (COVID-19) mRNA-1273 vaccine 08/11/21 R ecorded SARS-CoV-2 (COVID-19) mRNA-1273 vaccine 03/03/21 R ecorded SARS-CoV-2 (COVID-19) mRNA-1273 vaccine 08/08/20 R ecorded SARS-CoV-2 (COVID-19) mRNA-1273 vaccine 07/11/20 R ecorded [id number] bivalent booster vax 02/05/22 Recorded pneumococcal 23-valent vaccine 08/30/20 Recorded pneumococcal 23-valent vaccine 02/16/13 Recorded pneumococcal 13-valent vaccine 02/26/16 Recorded tetanus-diphtheria toxoids (Td) 03/19/14 Recorded tetanus-diphtheria toxoids (Td) 01/25/04 Recorded Medications Advair HFA 230 mcg / 21 mcg 2 puffs, Inhalation, 2 times a day, 0 Refills, Maintenance, 07/31/20 3:30:00 AM EDT, Partial fill upon patient request if the prescription is for a schedule II opioid drug. Start Date: 07/31/20 Status: Ordered Medication Dispense Status: Completed Total Allowed Fills: 1 Fills Dispensed: 0 Albuterol 0.5% inhalation shaji Refills 0, Maintenance, 02/23/19 9:10:29 AM EDT Start Date: 02/23/19 Status: Ordered Medication Dispense Status: Completed Total Allowed Fills: 1 Fills Dispensed: 0 amitriptyline 10 mg oral tablet 2, tablet, By Mouth, Daily at bedtime, # 180 tablet, Refills 1, Maintenance, 03/08/25 11:18:00 AM EST, Route to Pharmacy Electronically, [facility], 168, cm, 01/22/25 9:59:00 EDT, Height, 98.4, kg, 08/15/23 20:01:00 EDT, Dry Weight Start Date: 03/08/25 Status: Ordered Medication Dispense Status: Completed Quantity: 180.0 Unit: tablet Total Allowed Fills: 1 Fills Dispensed: 0 atorvastatin 10 mg oral tablet 1 tablet, By Mouth, Daily, # 90 tablet, 1 Refills, Maintenance, 12/04/24 6:45:00 PM EDT, [facility], 168, cm, 10/19/24 14:27:00 EDT, Height, 98.4, kg, 08/15/23 20:01:00 EDT, Dry Weight Start Date: 12/04/24 Status: Ordered Medication Dispense Status: Completed Quantity: 90.0 Unit: tablet Total Allowed Fills: 1 Fills Dispensed: 0 Flonase 50 mcg/inh nasal spray 1 sprays, Nares, Both, 2 times a day, # 16 Gm, 5 Refills, Maintenance, 02/23/19 9:51:58 AM EDT, [place], [facility], 1 sprays Nares, Both 2 times a day,x30 days Start Date: 02/23/19 Stop Date: 08/22/19 Status: Ordered Medication Dispense Status: Completed Quantity: 16.0 Unit: g Total Allowed Fills: 6 Fills Dispensed: 0 freestyle kelsy 2 plus sensors freestyle kelsy 2 plus sensors, See Instructions, # 2 each, Refills 11, Tot. Refills 11, Maintenance, Use as directed for glucose monitoring, 02/07/25 8:22:00 AM EDT, [facility], 168, cm, 01/22/25 9:59:00 EDT, Height, 98.4, kg, 08/15/23 20:01:00 EDT, Dry Weight Start Date: 02/07/25 Status: Ordered Medication Dispense Status: Completed Quantity: 2.0 Unit: each Total Allowed Fills: 12 Fills Dispensed: 0 FREESTYLE KELSY 2 SENSOR FREESTYLE KELSY 2 SENSOR, See Instructions, # 5 each, 0 Refills, Maintenance, USE DIRECTED FOR INSULIN DEPENDENCE, 02/21/24 5:20:00 PM EDT, 168, cm, 02/18/24 12:49:00 EDT, Height, 98.4, kg, 08/15/23 20:01:00 EDT, Dry Weight Start Date: 02/21/24 Status: Ordered Medication Dispense Status: Completed Quantity: 5.0 Unit: each Total Allowed Fills: 1 Fills Dispensed: 0 FREESTYLE KELSY 2 SENSOR FREESTYLE KELSY 2 SENSOR, See Instructions, # 3 kit, 3 Refills, Maintenance, USE DIRECTED FOR INSULIN DEPENDENCE, 12/19/24 4:45:00 PM EDT, 168, cm, 10/19/24 14:27:00 EDT, Height, 98.4, kg, 08/15/2419:01:00 EDT, Dry Weight Start Date: 12/19/24 Status: Ordered Medication Dispense Status: Completed Quantity: 3.0 Unit: kit Total Allowed Fills: 1 Fills Dispensed: 0 Lantus Solostar Pen 100 units/mL subcutaneous solution See Instructions, INJECT 80 UNITS UNDER THE SKIN EVERY MORNING AND 60 UNITS AT BEDTIME, # 45 mL, 2 Refills, Maintenance, 03/08/25 3:56:00 PM EST, [facility] #[id number], 168, cm, 01/22/25 9:59:00 EDT, Height, 98.4, kg, 08/15/23 20:01:00 EDT, Dry Weight Start Date: 03/08/25 Status: Ordered Medication Dispense Status: Completed Quantity: 45.0 Unit: mL Total Allowed Fills: 3 Fills Dispensed: 0 lisinopril 5 mg oral tablet 1, tablet, By Mouth, Daily, # 90 tablet, Refills 1, Maintenance, 01/11/25 9:25:00 AM EDT, Route to Pharmacy Electronically, [id number], 168, cm, 10/19/24 14:27:00 EDT, Height, 98.4, kg, 08/15/23 20:01:00 EDT, Dry Weight Start Date: 01/11/25 Status: Ordered Medication Dispense Status: Completed Quantity: 90.0 Unit: tablet Total Allowed Fills: 1 Fills Dispensed: 0 Melatonin 10 mg oral tablet 1 tablet = 10 mg, By Mouth, Daily at bedtime, 0 Refills, Maintenance, 07/29/20 12:08:00 PM EDT, Partial fill upon patient request if the prescription is for a schedule II opioid drug. Start Date: 07/29/20 Status: Ordered Medication Dispense Status: Completed Total Allowed Fills: 1 Fills Dispensed: 0 omeprazole 20 mg oral enteric coated capsule 1 capsule = 20 mg, By Mouth, 2 times a day, # 180 capsule, 1 Refills, Maintenance, 12/16/24 5:03:00 PM EDT, [facility]/pharm[facility] #[id number], 168, cm, 10/19/24 14:27:00 EDT, Height, 98.4, kg, 08/15/23 20:01:00 EDT,Dry Weight Start Date: 12/16/24 Status: Ordered Medication Dispense Status: Completed Quantity: 180.0 Unit: capsule Total Allowed Fills: 2 Fills Dispensed: 0 Ozempic 8 mg/3 mL (2 mg dose) subcutaneous solution See Instructions, INJECT 2MG UNDER THE SKIN EVERY WEEK IN THE ABDOMEN, THIGH, OR UPPER ARM, # 9 Unknown, 1 Refills, Maintenance, 09/26/24 12:24:00 PM EDT, [facility], 168, cm, 07/10/24 14:37:00 EDT, Height, 98.4, kg, 08/15/23 20:01:00 EDT, Dry Weight Start Date: 09/26/24 Status: Ordered Medication Dispense Status: Completed Quantity: 9.0 Unit: Unknown Total Allowed Fills: 1 Fills Dispensed: 0 Spiriva HandiHaler = 18 mcg, Inhalation, Daily, 0 Refills, Maintenance, 06/26/22 2:19:00 PM EST, Partial fill upon patient request if the prescription is for a schedule II opioid drug. 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 20 years; Number of years: 20; Total pack years: 40; Started at age: 20; Stopped at age: 67; entered on: 12/09/22 Sexual Orientation Self described orien tation: ; Straight or heterosexual Sex Sex Representation Female (finding) Patient Care team information Care Team Personnel Name: Tammy WEAVER, Luba Lutz Position: S Physician - Primary Care Member Role: PCP Address: [address] [place] [address] Telecom: Care Team Related Persons Name: DIANE MAGALLANES Name: KISHOR NIELSON Insurance Providers Guarantor name: [email or web address] Information #: 1 Payer: [employer] ADV HMO Payer Identifier: AMY Member Number: [id number] Group Number: [id number] Subscriber Identifier: [id number] Relationship to Subscriber: self Coverage Type: Medicare HMO Coverage Verification Date: Telecom: NA Address:
--- OUTSIDE RECORDS SUMMARY | 2025-04-05 23:59 | XMS_ITS | Continuity of Care Document ---
Author Organization [facility] Address [address] [place] [address]- Care Team Providers Care Cutter Aluminum Sheet Name Role Phone Tammy WEAVER, Luba Lutz Primary Care Physician Encounter [facility] [place] Date(s): 03/06/25 - 04/05/25 [facility] [address] [place], [place] [address] Encounter Type: Triage Allergies, Adverse Reactions, Alerts Substance Criticality Severity [...] Robb rded tetanus/diphtheria/pertussis, acel(Tdap) 01/11/25 Recorded SARS-CoV-2(COVID-19)mRNA-LNP vac([id number]) 01/11/25 Recorded RSV vaccine preF3, recombinant 01/21/24 Recorded RSV vaccine preF3, recombinant 02/13/23 Recorded SARS-CoV-2(COVID-19)mRNA-LNP vac(qha519) 01/21/24 Recorded SARS-CoV-2(COVID-19)mRNA-LNP vac([id number]) 07/20/23 Recorded SARS-CoV-2(COVID-19)mRNA-LNP vac(zuq302) 01/16/23 Recorded zoster vaccine, inactivated 10/16/22 Recorded zoster vaccine, inactivated 09/03/21 Recorded SARS-CoV-2 (COVID-19) mRNA-1273 vaccine 06/26/22 G iven SARS-CoV-2 (COVID-19) mRNA-1273 vaccine 12/24/21 R ecorded SARS-CoV-2 (COVID-19) mRNA-1273 vaccine 08/11/21 R ecorded SARS-CoV-2 (COVID-19) mRNA-1273 vaccine 03/03/21 R ecorded SARS-CoV-2 (COVID-19) mRNA-1273 vaccine 08/08/20 R ecorded SARS-CoV-2 (COVID-19) mRNA-1273 vaccine 07/11/20 R ecorded [id number] bivalent booster vax 02/05/22 Recorded pneumococcal 23-valent [...] 11:18:00 AM EST, Route to Pharmacy Electronically, [id number], 168, cm, 01/22/25 9:59:00 EDT, Height, 98.4, kg, 08/15/23 20:01:00 EDT, Dry Weight Start Date: 03/08/25 Status: Ordered Medication Dispense Status: Completed Quantity: 180.0 Unit: tablet Total Allowed Fills: 1 Fills Dispensed: 0 atorvastatin 10 mg oral tablet 1 tablet, By Mouth, Daily, # 90 tablet, 1 Refills, Maintenance, 12/04/24 6:45:00 PM EDT, [facility], 168, cm, 10/19/24 14:27:00 EDT, Height, 98.4, kg, 08/15/23 20:01:00 EDT, Dry Weight Start Date: 12/04/24 Status: Ordered Medication Dispense Status: Completed Quantity: 90.0 Unit: tablet Total Allowed Fills: 1 Fills Dispensed: 0 Flonase 50 mcg/inh nasal spray 1 sprays, Nares, Both, 2 times a day, # 16 Gm, 5 Refills, Maintenance, 02/23/19 9:51:58 AM EDT, [place], [facility], 1 sprays [...] 2 Refills, Maintenance, 03/08/25 3:56:00 PM EST, [facility]/pharm[facility] #[id number], 168, cm, 01/22/25 9:59:00 EDT, Height, 98.4, kg, 08/15/23 20:01:00 EDT, Dry Weight Start Date: 03/08/25 Status: Ordered Medication Dispense Status: Completed Quantity: 45.0 Unit: mL Total Allowed Fills: 3 Fills Dispensed: 0 lisinopril 5 mg oral tablet 1, tablet, By Mouth, Daily, # 90 tablet, Refills 1, Maintenance, 01/11/25 9:25:00 AM EDT, Route to Pharmacy Electronically, [facility], 168, cm, 10/19/24 14:27:00 EDT, Height, 98.4, [...] 1 Refills, Maintenance, 12/16/24 5:03:00 PM EDT, [facility] #[id number], 168, cm, 10/19/24 14:27:00 EDT, Height, [...] 1 Refills, Maintenance, 09/26/24 12:24:00 PM EDT, [facility], 168, cm, 07/10/24 14:37:00 EDT, Height, 98.4, [...] Care team information Care Team Personnel Name: Luba Munoz MD Position: [facility] Physician - Primary Care Member Role: PCP Address: [address] [place] [address] Telecom: Care Team Related Persons Name: DIANE MAGALLANES Name: KISHOR NIELSON Insurance Providers Guarantor name: IAM ELLIE Payteller Information #: 1 Payer: [employer] ADV HMO Payer Identifier: NA Member Number: [id number] Group Number: [id number] Subscriber Identifier: AMY Relationship to Subscriber: self Coverage Type: Medicare HMO Coverage Verification Date: NA Telecom: NA Address: NA
--- NOTE | 2025-04-06 13:14 | MHC.OFFVIS ---
Vital Signs 04/06/25 13:19 Weight 213 lb BP 129/58 L Blood Pressure Location Rt brachial Position Sitting Respiration 16 Pulse 97 Pulse Source Pulse Oximeter Pulse Oximetry (%) 94 Oxygen Delivery Method Room Air Intake Visit Reasons: S/p NEVRO SCS Trial 03/16/25 Director Of Quality Improvement Required: No Accompanied by: Self / Same As Patient Allergies hydrocodone (From Vicodin) Allergy (Severe, Verified 04/06/25 13:14) Vomiting meperidine (From Demerol) Allergy (Severe, Verified 04/06/25 13:14) Vomiting Seasonal Allergies Allergy (Unknown, Verified 04/06/25 13:14) Unknown HPI Comments Details: History of Present Illness The patient is a 79 year old female presenting for follow-up one week after a spinal cord stimulation trial. She reports that the Nevro spinal cord stimulation trial was unsuccessful and did not provide pain relief. Max Ortiz, in room during the visit. She recalls a previous epidural steroid injection at another facility, which was also not helpful for her pain. Pain Description - During the spinal cord stimulator trial, the patient reports she did not feel any stimulation, although she experienced itching at the site. - She notes one instance of feeling a sensation in her heel and the bottom of her foot, which she attributed to the device. Pain Management - Analgesia: The recent spinal cord stimulator trial was unsuccessful in providing pain relief. - Affect: The patient expressed relief at having the stimulator device removed from her back. - Adverse Effects: The patient experienced itching from the tape associated with the trial device. Results - Nevro spinal cord stimulation trial: Unsuccessful; did not provide pain relief. [facility] Medical History (Updated 03/14/25 @ 13:56 by Kaylyn Valentino RN) Asthma GERD (gastroesophageal reflux disease) Back pain Spinal stenosis DDD (degenerative disc disease), lumbar Hypertension COPD (chronic obstructive pulmonary disease) Sleep apnea Diabetes Surgical History (Updated 03/30/25 @ 11:40 by Megan Keating RN) H/O colonoscopy with polypectomy Social History Patient Tobacco Use Status: Former Tobacco user Tobacco use type: Cigarette Review of Systems Narrative Review of Systems - Neurological: Reports a sensation in her heel and the bottom of her foot during the stimulation trial. - Integumentary: Reports itching at the trial site. Physical Exam Exam Exam: Physical Exam General: awake, alert, oriented. Answers questions appropriately. Fully engaged in examination. Skin: warm, dry, intact HEENT: Normocephalic. Hearing intact. Cardiac: External chest normal in appearance. Respiratory: No cough, audible wheezing or stridor. Abdomen: without gross distension. MS: No obvious swelling or deformities. Able to transition from sit to stand unassisted. Ambulates with bilaterally normal heel strike and toe off Neurological: Oriented to person, place, time and situation. Thought process intact. No gait abnormalities appreciated. Psychiatric: Appropriate mood and affect. Good judgment and insight. Nevro SCS Trial lead removal: Area was cleansed with chloraprep, dressing was taken down, insertion site was visualized and without redness/irritation/drainage. Sutures were then removed and both leads withdrawn without resistance; leads examined and noted to be without concern, tips intact. Area cleansed again with chloraprep, bacitracin dressing was applied and covered with tegaderm. Patient tolerated well. Vital Signs: Last Vital Signs Pulse 97 04/06/25 13:19 Resp 16 04/06/25 13:19 BP 129/58 L 04/06/25 13:19 Pulse Ox 94 04/06/25 13:19 Oxygen Delivery Method Room Air 04/06/25 13:19 Assessment & Plan Assessment & Plan (1) Degenerative disc disease, lumbar: Code(s): M51.369 - Other intervertebral disc degeneration, lumbar region without mention of lumbar back pain or lower extremity pain Category: Medical (2) Lumbar spondylosis: Code(s): M47.816 - Spondylosis without myelopathy or radiculopathy, lumbar region Category: Medical (3) Spinal stenosis: Code(s): M48.00 - Spinal stenosis, site unspecified Category: Medical (4) Chronic pain syndrome: Code(s): G89.4 - Chronic pain syndrome Category: Medical Plan Plan The spinal cord stimulator trial leads were removed in the office. A referral will be placed for the patient to be evaluated by a neurosurgeon. If the neurosurgeon determines there are no surgical options, the patient will return for follow-up to discuss other options, including potential for an intrathecal pain pump. A trial for the pain pump would involve a single injection into the intrathecal space, which is a different procedure with different medication than the epidural steroid injection she had previously. The patient will continue her course of antibiotics as prescribed after SCS trial placement surgery. Patient was informed and verbally consented to the use of an ambient scribe for clinic note documentation during this visit. Discussion Notes We discussed that the next step is a referral to a neurosurgeon for evaluation. I informed her that if surgery is not an option, we can consider other treatments, such as an intrathecal pain pump. I explained that the trial for a pain pump is quicker than the SCS trial, involving a single injection into the lower back's intrathecal space, and delivers low-dose medication for targeted, continuous relief without systemic side effects. We will verify insurance coverage before proceeding with any future trial. The patient agreed to this plan, starting with the surgeon consultation. Patient Instructions - Continue to take your antibiotics as prescribed. - You may shower after 24 hours. - When you shower, you can take off the sticky dressing that was placed on your back. - We will put in a referral for you to see a neurosurgeon. - Depending on what the surgeon says, you may need to come back to this office to discuss other options. Coding Level of Care Code Est Pt Level 3 (10640) Add On Problem Visit Only Diagnoses Degenerative disc disease, lumbar M51.369 Lumbar spondylosis M47.816 Spinal stenosis M48.00 Chronic pain syndrome G89.4
[2025-04-06 13:19] VITALS: BP 129/58; PULSE 97; RESP 16; O2SAT 94
--- OUTSIDE RECORDS SUMMARY | 2025-04-06 18:39 | XMS_ITS | Clinical Summary ---
Author Organization [facility] Prior to 09/23/[address] [place] [id number] Care Team Providers Care Event Planning Manager Name Role Phone Luba Mills MD Primary Care Provider [phone] Allergies Active Allergy Reactions Criticality Noted Date [...] age to complete this topic Care Teams Event Planning Manager Relationship Specialty Start Date End Date Luba Mills MD [address] [facility] JOSEFA [place]vera [id number] PCP - General Internal Medicine 04/24/20
== END 2025-04-06 14:05 | disposition home or self-care (01) ==
LOC: HO.PMC 13:02
PROVIDERS: Visit Provider Registered Nurse Emergency
DX: M51.369 Other intervertebral disc degeneration, lumbar region without mention of lumbar back pain or lower extremity pain (principal); M47.816 Spondylosis without myelopathy or radiculopathy, lumbar region; M48.00 Spinal stenosis, site unspecified; G89.4 Chronic pain syndrome
CPT/HCPCS: 99024

== ENCOUNTER 2025-04-16 12:35 | Outpatient (AMB) | payer MEDICARE, SELFPAY ==
[2025-04-16 12:58] VITALS: BMI 35.0
--- NOTE | 2025-04-16 12:58 | A.SPINEOV_ITS ---
Vital Signs 04/16/25 12:58 Height 5 ft 6 in Weight 217 lb BMI 35.0 Intake Visit Reasons: low back pain Intake Note: Ms. Baron is here today c/o pain in the lower back when walking and standing. 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 She is a pleasant 79-year-old female comes in today for evaluation of low back pain primarily with walking. She reports this has been ongoing for multiple decades. She has been evaluated at your clinic and was trialed with a spinal cord stimulator. She reports that she did not have significant meaningful relief from the attempted trial. She comes in today to discuss potential surgical options to treat this. She states that when sitting down and resting she has 0 pain. However when she stands up and begins ambulating she has severe 10/10 pain in her low back. When describing the pain she runs her hands in an axial fashion across the small of her back. She denies any pain in her upper thighs or posterior buttocks. No shooting pain down the legs. No numbness/tingling/burning in her lower extremities. She reports that she is only able to walk about 10 yd until the pain is very severe causing her to need to sit down and rest. She reports that she has tried a plethora of treatment options in order to address this, including prior cortisone injections, multiple rounds of physical therapy, [id number] medications, prescription medications, and most recently the spinal cord stimulator trial implant. Unfortunately these attempted interventions have not been successful thus far. PMH: Type 2 diabetes with last A1c reported at 6.3 a few months ago. GERD, hyperlipidemia, high blood pressure, seasonal allergies. The patient denies any history of surgery. Social hx: The patient does not smoke, reports no substance use. Medications: Omeprazole, lisinopril, Lantus, Ozempic, atorvastatin, fluticas one, amitriptyline, Spiriva inhaler. Allergies: Vicodin, Demerol. Physical exam: The patient has full 5/5 strength in her upper and lower extremities. She ambulates well with a nonantalgic non spastic gait. She is slightly hunched over when ambulating. She reports no significant sensational deficits to light touch during examination. Her reflexes are 1+ hypoactive in the bilateral patella, but are 2+ normal elsewhere. (-) bilateral straight leg raise, (-) Burch's, (-) clonus. Imaging review: MRI of the lumbar spine completed here at [facility] shows diffuse spondylosis of the lumbar spine with severe degenerative disc disease worse at L3-4, L4-5. At these levels there is notable Modic endplate changes and inflammation. There appears to be some posterior osteophyte bridging at L3-4, indicative of the early stages of auto fusion. There are varying levels of compression as a result of the aforementioned degeneration, including a disc herniation at L2-3, causing some effacement of the ventral surface of the thecal sac and severe bilateral foraminal stenosis. There is also moderate central canal and bilateral foraminal stenosis at L3-4, and severe left-sided lateral recess stenosis at L4-5 secondary to disc herniation seen at this level. Impression: Pleasant 79-year-old female comes in today for evaluation of low back pain primarily with walking. She reports no leg pain in association with her back pain despite imaging showing severe compression of exiting nerve roots at multiple levels. Her imaging is somewhat inconsistent with the story of classic spinal stenosis as the central canal stenosis is actually much less severe overall than the nerve root impingement. We discussed the continuum of treatment options for the issue seen in her lumbar spine. In the absence of leg pain, we would typically treat this type of severe degenerative disc disease via lumbar fusion. In order to make any significant recommendations regarding this type of surgery we would need to obtain her medical records from her primary care physician, and have her sent for a CT scan of the lumbar spine to evaluate for osteophyte growth in auto fusion. After some discussion, the patient seemed rather averse to the idea of surgery, and was encouraged to continue follow up with our colleagues in pain management for discussion of injections/potential pain pump placement. I answered all of her questions to the best of my ability. Thank you for allowing us to care for your patient. 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
--- OUTSIDE RECORDS SUMMARY | 2025-04-16 15:44 | XMS_ITS | Clinical Summary ---
Author Organization [facility] Address [address] [place] [id number] Phone Care Team Providers Care Mathematical Sciences Professor Name Role Phone Luba Munoz MD Primary [...] VACCINES (1 of 2) 1996 OSTEOPOROSIS SCREENING INITIAL (ONE-TIME) 09/14/2011 RSV VACCINE (1 - 1-dose 75+ series) 2021 DEPRESSION SCREENING 12/22/2021 12/22/2020 Adult Td,Tdap Booster 03/19/2024 03/19/2014, 004 INFLUENZA VACCINE (#1) 2024 , 01/26/2018, 01/28/2017, Additional history exists COVID-19 VACCINE (2024- season) 2024 08/08/2020, 07/11/2020 PNEUMOCOCCAL VACCINES (50+ years) Completed 08/30/2020, 02/26/2016, 02/16/2013 SMOKING STATUS SCREENING (Once After 26 Yrs) Completed 12/25/2020 HEPATITIS A [...] topic Medical Devices Not on file [place] [address] [address] [place] [id number] MEDICARE REPLACEMENT MEDICARE PART A & B MEDICARE REPLACEMENT MEDICARE PART A & [place] [address] [place] [id number] MEDICARE REPLACEMENT MEDICARE PART A & B MEDICARE REPLACEMENT MEDICARE PART A & B MEDICARE REPLACEMENT MEDICARE PART A & B MEDICARE REPLACEMENT MEDICARE PART A & B MEDICARE REPLACEMENT MEDICARE PART A & B [facility] MEDICARE REPLACEMENT Member Subscriber Plan / Payer (Ef fective 2020-Present) Name:Dorina Baron Relation to Subscriber:Self Name:Dorina Baron Payer ID:[id number] (NAIC) Type:Medicare Address: [place] [phone] MEDICARE PART A & B [facility] MEDICARE REPLACEMENT MEDICARE PART A & B Care Teams Mathematical Sciences Professor Relationship Specialty Start Date End Date Luba Munoz MD [id number] [address] PCP - General Internal Medicine 12/05/20 Additional Source Comments The information contained in this document represents components of the legal health record. It is not the complete legal health record.[facility]
--- OUTSIDE RECORDS SUMMARY | 2025-04-16 15:45 | XMS_ITS | Clinical Summary ---
Author Organization [facility] Prior to 09/23/[address] [place] [id number] Care Team Providers Care Tobacco Packer Name Role Phone Luba Mills MD Primary Care Provider [phone] Allergies Active Allergy Reactions Criticality Noted Date [...] age to complete this topic Care Teams Tobacco Packer Relationship Specialty Start Date End Date uLba Mills MD [facility] JOSEFA Olvera [phone] PCP - General Internal Medicine 04/24/20
== END 2025-04-16 15:36 | disposition home or self-care (01) ==
LOC: HO.HNS 12:35
PROVIDERS: PCP Pediatrics; Referring Provider Registered Nurse Emergency; Visit Provider Physician Assistant
DX: M51.362 Other intervertebral disc degeneration, lumbar region with discogenic back pain and lower extremity pain (principal)
CPT/HCPCS: 99204

== ENCOUNTER → 2025-04-16 12:35 | Outpatient (BNVA) | payer MEDICARE, SELFPAY | PROVIDERS: PCP Pediatrics; Referring Provider Registered Nurse Emergency; Visit Provider Physician Assistant | DX: M51.362 Other intervertebral disc degeneration, lumbar region with discogenic back pain and lower extremity pain (principal) | CPT/HCPCS: 99202 ==